=== PATIENT | male | born 1955 | race Caucasian/White ===

== ENCOUNTER 2020-05-27 16:44 | Inpatient (IN) | payer MEDICARE, OTHER ==
[~2020-05-27] VITALS: Ht 188 cm; Wt 84.8 kg
--- NOTE | 2020-05-27 17:29 | NUR ---
LAWRENCE FROM HOME TO ER BED 6. AAOX4. NOT IN RESP DISTRESS, BREATHING EVEN AND UNLABORED. BROUGHT IN FOR DIARRHEA X 7 DAYS AND FEELING SICK AND WEAK. PER PT, HE HAS BEEN HAVING MULTIPLE EPISODES OF [place]ATTERY DIARRHEA FOR THE PAST 7 DAYS. PT IS REPORTED TO BE AN ALCOHOLIC AND LAST DRINK WAS 7 DAYS AGO. NO NOTED TREMORS. XIANG DAVIS WAS AT THE BEDSIDE FOR EVAL. ORDERS RECEIVED, NOTED AND CARRIED OUT. IV LINE ALREADY ESTABLISHED ON LFA 20G BY EMS WORKFORCE MANAGEMENT MANAGER. BLOOD DRAWN BY COVER STRIPPER.
[2020-05-27] MEDS ORDERED: IV NS 0.9% 500 ML BAG IV ONE ×2 (17:30→18:30)
[2020-05-27] MEDS ORDERED: CHLORDIAZEPOXIDE HCL 25 MG CAPSULE PO ONE (17:30)
[2020-05-27] MEDS ORDERED: LORAZEPAM INJ 2 MG/ML VIAL IV ONE (17:30)
[2020-05-27] MEDS ORDERED: ONDANSETRON HCL/PF 4 MG/2 ML VIAL IVP ONE (17:30)
[2020-05-27] MEDS ORDERED: PANTOPRAZOLE 40 MG VIAL IV ONE (17:30)
[2020-05-27 17:31] LABS: BASOPHILS # (AUTO) 0.1 /CMM (0.0-0.2); BASOPHILS % (AUTO) 0.3 % (0.0-2.0); EOSINOPHILS % (AUTO) 0.1 % (0.0-6.0); HEMATOCRIT 36 % (39-51); HEMOGLOBIN 11.4 g/dL (13.5-17.5); LYMPHOCYTES # (AUTO) 0.3 /CMM (0.8-4.8); LYMPHOCYTES % (AUTO) 1.3 % (20.0-44.0); MEAN CORPUSCULAR HGB CONC 32 g/dl (31.0-36.0); MEAN CORPUSCULAR VOLUME 95 fL (80-96); MONOCYTES # (AUTO) 0.8 /CMM (0.1-1.30); MONOCYTES % (AUTO) 3.3 % (2.0-12.0); NEUTROPHILS # (AUTO) 22.6 /CMM (1.8-8.9); PLATELET COUNT (AUTO) 193 /CMM (150-450); RED BLOOD CELL COUNT(AUTO) 3.76 MIL/uL (4.5-6.0); WHITE BLOOD COUNT (AUTO) 23.8 K/uL (4.3-11.0)
[2020-05-27] MEDS ORDERED: PANTOPRAZOLE 40 MG VIAL ONE (17:40)
[2020-05-27] MEDS ORDERED: ONDANSETRON HCL/PF 4 MG/2 ML VIAL ONE (17:40)
[2020-05-27] MEDS ORDERED: CHLORDIAZEPOXIDE HCL 25 MG CAPSULE ONE (17:41)
[2020-05-27] MEDS ORDERED: LORAZEPAM INJ 2 MG/ML VIAL ONE (17:41)
[2020-05-27 17:54] LABS: ALBUMIN 1.9 g/dL (3.4-5.0); BILIRUBIN,DIRECT 0.5 mg/dL (0.0-0.2); BILIRUBIN,TOTAL 0.9 mg/dL (0.2-1.0); CALCIUM, SERUM 8.4 mg/dL (8.5-10.1); CREATININE 1.4 mg/dL (0.6-1.3)
[2020-05-27 18:09] LABS: POTASSIUM 2.6 mmol/L (3.5-5.1)
[2020-05-27 18:10] LABS: B-TYPE NATRIURETIC PEPTIDE 1516 PG/ML (0-125)
--- NOTE | 2020-05-27 18:10 | NUR ---
PT STILL UNABLE TO PROVIDE URINE AT THIS TIME. XIANG DAVIS WAS NOTIFIED, ORDER RECEIVED TO GIVE ANOTHER 500ML NS BOLUS X 1. COLLECT URINE WHEN PT CAN URINATE. ORDERS NOTED AND CARRIED OUT.
[2020-05-27 18:25] LABS: ALCOHOL, BLOOD 0 mg/dL (0-0)
[2020-05-27] MEDS ORDERED: AZITHROMYCIN 500 MG in IV D5W 250 ML IV ONE (18:30)
[2020-05-27] MEDS ORDERED: CEFTRIAXONE 1GM BAG (ER ONLY) 50 ML IV ONE ×2 (18:30→19:22)
[2020-05-27] MEDS ORDERED: IV NS 0.9% 1,000 ML BAG IV ONE (18:30)
[2020-05-27] MEDS ORDERED: ACETAMINOPHEN 325 MG TABLET PO ONE (18:30)
--- NOTE | 2020-05-27 18:57 | NUR ---
URINE COLLECTED VIA IN AND OUT CATH PER PA ORDERED. PROCEDURE DONE WITH STRICT STERILE TECHNIQUE. PT IS NOT COMPLAINING OF ANY PAIN.
[2020-05-27 19:03] LABS: APPEARANCE,URINE Clear (CLEAR); BILIRUBIN,URINE SMALL (NEGATIVE); BLOOD, URINE Large Ery/uL (NEGATIVE); COLOR,URINE Yellow (YELLOW); KETONES,URINE Negative (NEGATIVE); LEUKOCYTE ESTERASE ,URINE Negative (NEGATIVE); NITRITE, URINE Negative (NEGATIVE); PROTEIN,URINE 30 mg/dl (NEGATIVE); UGLUCOSE Negative (NEGATIVE)
[2020-05-27 19:34] LABS: BACTERIA,URINE Moderate /HPF (None Seen); SQUAMOUS EPITHELIAL CELL,UR Moderate /HPF (None Seen)
[2020-05-27] MEDS ORDERED: ACETAMINOPHEN ES 500 MG TABLET ONE (19:34)
[2020-05-27 19:35] LABS: RBC,URINE 21-50 /HPF (0-2)
[2020-05-27] MEDS ORDERED: POTASSIUM CL. PREMIX PERIPHER. 50 ML ONE ×4 (19:35→22:42)
[2020-05-27] MEDS: POTASSIUM CL. PREMIX PERIPHER. 50 ML IV SCH ×4 (19:45→22:52)
--- NOTE | 2020-05-27 20:20 | NUR ---
COVID SWAB DONE AND SENT TO LAB
[2020-05-27] MEDS ORDERED: HYDROCODONE/APAP 5/325MG TABLET PO PRN (22:00)
[2020-05-27] MEDS ORDERED: MAGNESIUM HYDROXIDE 30 ML UDC PO PRN (22:00)
[2020-05-27] MEDS ORDERED: MAG HYDROX/AL HYDROX/SIMETH 30 ML UDC PO PRN (22:00)
[2020-05-27] MEDS ORDERED: Z GUARD REMEDY 2 OZ OINT TP PRN (22:00)
[2020-05-27] MEDS ORDERED: LORAZEPAM 1 MG TABLET PO PRN (22:00)
[2020-05-27] MEDS ORDERED: ZOLPIDEM TARTRATE 5 MG TABLET PO PRN (22:00)
[2020-05-27] MEDS ORDERED: ONDANSETRON HCL/PF 4 MG/2 ML VIAL IVP PRN (22:00)
[2020-05-27] MEDS ORDERED: ACETAMINOPHEN 325 MG TABLET PO PRN (22:00)
--- NOTE | 2020-05-27 22:12 | NUR ---
BED ASSIGNMENT 203
--- NOTE | 2020-05-27 23:07 | NUR ---
REPORT GIVEN TO WEI LUNA FOR JOSEPH.
[2020-05-27 23:48] LABS: C-REACTIVE PROTEIN 21.7 mg/dL (0.0-0.9)
[2020-05-28] VITALS: BP 104/67
--- NOTE | 2020-05-28 00:05 | NUR ---
pt transported to unit on [facility] with emt and rn at bedside w/ acls protocol. nad noted during transport. pt ambulated with min assist and aide of a cane from gurney to bed.
[2020-05-28 01:03] VITALS: BP 104/67
[2020-05-28] MEDS: ASCORBIC ACID 500 MG TABLET PO SCH ×2 (01:22→08:45)
[2020-05-28] MEDS: ZINC SULFATE 220 MG CAPSULE PO SCH ×2 (01:22→08:45)
[2020-05-28] MEDS: CHOLECALCIFEROL 1,000 UNIT TABLET (VIT D3) PO SCH ×2 (01:22→08:45)
[2020-05-28] MEDS: IV NS 0.9% 1,000 ML IV PRN ×2 (01:23→20:25)
[2020-05-28 04:00] VITALS: BP 116/67
[2020-05-28 06:19] VITALS: BP 116/67
--- NOTE | 2020-05-28 07:40 | NUR ---
RN NOTES RECEIVED PT IN BED, AWAKE, A/O X3-4. PT TOLERATING RA, WITH NO ACUTE RESPIRATORY DISTRESS NOTED. PT DENIES ANY PAIN OR DISCOMFORT AT THIS TIME. ON TELEMONITORING ST 140S, DENIES OF ANY CHEST PAIN. PT DENIES ANY CONCERNS OR QUESTIONS AT THIS TIME WELL. IVF NS AT 75ML/HR TO LFA G20, INTACT AND FLUID INFUSING WELL. PT KEPT COMFORTABLE. PT'S BED IN LOWEST, LOCKED POSITION WITH SRX3. CALL LIGHT KEPT WITHIN REACH. WILL CONTINUE PLAN OF CARE.
[2020-05-28 07:58] LABS: BASOPHILS % (AUTO) 0.2 % (0.0-2.0); EOSINOPHILS % (AUTO) 0.5 % (0.0-6.0); HEMATOCRIT 37 % (39-51); HEMOGLOBIN 11.6 g/dL (13.5-17.5); LYMPHOCYTES # (AUTO) 0.7 /CMM (0.8-4.8); LYMPHOCYTES % (AUTO) 3.3 % (20.0-44.0); MEAN CORPUSCULAR HGB CONC 31 g/dl (31.0-36.0); MEAN CORPUSCULAR VOLUME 96 fL (80-96); MONOCYTES # (AUTO) 0.4 /CMM (0.1-1.30); NEUTROPHILS # (AUTO) 18.8 /CMM (1.8-8.9); PLATELET COUNT (AUTO) 179 /CMM (150-450); RED BLOOD CELL COUNT(AUTO) 3.88 MIL/uL (4.5-6.0)
[2020-05-28 08:26] LABS: CALCIUM, SERUM 7.8 mg/dL (8.5-10.1); CARBON DIOXIDE 17 mmol/L (21-32); CHLORIDE 105 mmol/L (98-107); CREATININE 1.2 mg/dL (0.6-1.3); GLUCOSE 99 mg/dL (74-106); MAGNESIUM 2.4 mg/dL (1.8-2.4); PHOSPHORUS 2.9 mg/dL (2.5-4.9); SODIUM SERUM 137 mmol/L (136-145); UREA NITROGEN, BLOOD 29 mg/dL (7-18)
[2020-05-28] MEDS: ENOXAPARIN SODIUM 40 MG/0.4 ML DISP.SYRIN SQ SCH (08:43)
--- NOTE | 2020-05-28 10:45 | NUR ---
RN NOTES PT SEEN AND EVALUATED BY DR. DAVIS/NEPHRO, ORDERED TO REPLACE POTASSIUM 40 PO. PLACED AND CARRIED OUT. PT AWARE.
[2020-05-28] MEDS ORDERED: POTASSIUM CHLORIDE 20 MEQ TAB.PRT.SR PO ONE (11:00)
--- NOTE | 2020-05-28 11:00 | NUR ---
RN NOTES SEEN AND EVALUATED BY HOSPITALIST/NN, ORDERED STOOL FOR CDIFF. PT AWARE.
--- NOTE | 2020-05-28 11:15 | NUR ---
RN NOTES STOOL SPECIMEN FOR C DIFF SENT TO LAB. RECEIVED BY ARTURO.
[2020-05-28 12:36] LABS: CHOLESTEROL 54 mg/dL (<200); CREATINE KINASE, TOTAL 10 U/L (39-308); FERRITIN 224 ng/mL (8-388); LDL 31 mg/dL (0-99); THYROID STIMULATING HORMONE 0.654 uIU/mL (0.358-3.74); TRIGLYCERIDES 62 mg/dL (30-150)
[2020-05-28 12:38] LABS: HDL CHOLESTEROL < 10 mg/dL (40-60)
--- NOTE | 2020-05-28 16:28 | NUR ---
RN NOTES SEEN AND EVALUATED BY ID ARTIFICIAL FLOWERS STARCHER, IV ANTIBIOTICS MODIFIED. PT R/O FOR CDIFF, CONTACT ISOLATION INITIATED.
--- NOTE | 2020-05-28 16:29 | NUR ---
RN NOTES RECEIVED CALL FROM LAB PT IS NEGATIVE FOR COVID, HOSPITALIST/NN AND NURSING SUP/KAM NOTIFIED WITH THE RESULT WELL.
[2020-05-28] MEDS: CEFTRIAXONE 2 G in IV D5W 100 ML IV SCH (17:04)
--- NOTE | 2020-05-28 17:20 | NUR ---
Received transfer report from [facility] Nurse, [place].
[2020-05-28] MEDS: METRONIDAZOLE 500MG/ NS 100ML 500 MG in PREMIX 1 EA IV SCH (17:41)
--- NOTE | 2020-05-28 19:22 | NUR ---
RN NOTES PT REMAINS IN BED, AWAKE, A/O X3-4. PT TOLERATING RA, WITH NO ACUTE RESPIRATORY DISTRESS NOTED. PT DENIES ANY PAIN OR DISCOMFORT AT THIS TIME. ON TELEMONITORING ST 140S, DENIES OF ANY CHEST PAIN. IVF NS AT 75ML/HR TO LFA G20, INTACT AND FLUID INFUSING WELL. PT KEPT COMFORTABLE. ALL NEEDS AND CARE ATTENDED. PT'S BED IN LOWEST, LOCKED POSITION WITH SRX3. CALL LIGHT KEPT WITHIN REACH. ENDORSED TO INCOMING NIGHT NURSE FOR JOSEPH.
[2020-05-28 20:00] VITALS: BP 103/64
--- NOTE | 2020-05-28 20:00 | NUR ---
CONCRETE PRODUCTS DISPATCHERPLUG ASSEMBLER NOTE: Patient in bed awake, alert, and oriented x4. Patient able to make needs known. Patient breathing well on room air and in no apparent respiratory distress, no SOB. Patient denies pain or discomfort. IV access noted on left forearm 20 gauge, dressing intact, dry, flushes well patent, no redness or infiltration. IV access also noted on right forearm 20 gauge, patent, no redness or infiltration. Safety precaution is in place, bed is in the lowest level, bed is locked, alarm is on, side rails x2 are up and call light is within reach. Will continue to monitor.
[2020-05-29] VITALS: BP 115/73
[2020-05-29] MEDS: METRONIDAZOLE 500MG/ NS 100ML 500 MG in PREMIX 1 EA IV SCH ×3 (01:17→16:30)
[2020-05-29 04:00] VITALS: BP 153/81
--- NOTE | 2020-05-29 06:34 | NUR ---
SLITTER PROCESSED FILM CLOSING NOTE: Patient in bed sleeping comfortably. Patient is breathing well on room air. Breathing equal and unlabored, no SOB. Safety precaution is in place, bed is in the lowest level, side rails are up, brakes are on, alarm is on, and call light is within reach. Will endorse to next shift.
--- NOTE | 2020-05-29 07:30 | NUR ---
MANAGER EQUITY OPENING NOTES RECEIVED PT ON BED, A/OX4, ABLE TO MAKE NEEDS KNOWN. RESPIRATION EVEN AND NON LABORED WITH NO ACUTE RESPIRATORY DISTRESS, TOLERATED ROOM AIR. ABD SOFT AND NON DISTENDED WITH ACTIVE BOWEL SOUNDS, URINAL ON BEDSIDE. DENIES PAIN AND DISCOMFORT. SKIN WARM TO TOUCH AN DRY, BLE OFFLOAD, INDEPENDENT IN BED MOBILITY. IV SITE AT RIGHT FA AND LEFT FA, NO S/S OF INFILTRATION, PATENT IN FLUSHING RUNNING NS AT 75 ML/HR. CALL LIGHT WITHIN REACH, BED IN LOW LOCKED POSITION, SRX2 UP FOR SAFETY, BED ALARM ON. BM 05/28 5 LOST BM PER REPORT, PENDING C-DIFF TEST. TELE MONITOR SHOWS SINUS RHYTHM TO SNUS TACHYCARDIA MAX 110. WILL CONTINUE TO MONITOR CARE
[2020-05-29] MEDS: ASCORBIC ACID 500 MG TABLET PO SCH (08:23)
[2020-05-29] MEDS: CHOLECALCIFEROL 1,000 UNIT TABLET (VIT D3) PO SCH (08:23)
[2020-05-29] MEDS: ZINC SULFATE 220 MG CAPSULE PO SCH (08:23)
[2020-05-29] MEDS: ENOXAPARIN SODIUM 40 MG/0.4 ML DISP.SYRIN SQ SCH (08:25)
[2020-05-29 10:07] VITALS: BP 140/69
[2020-05-29] MEDS: IV NS 0.9% 1,000 ML IV PRN (11:16)
[2020-05-29 12:20] VITALS: BP 148/68
--- NOTE | 2020-05-29 12:55 | NUR ---
PORTFOLIO STRATEGIST NOTES PT SEEN AND EVALUATED BY DR. RIVERA, REPORT PROVIDED. SURGICAL CONSULT INITIATED D/T DIVERTICULITIS. D/C NS CHANGED TO D5NS AT 75 ML/HR. DC DIET, NPO NOW. ORDER READ BACK NOTED AND CARRIED OUT. PT NOTIFIED
[2020-05-29] MEDS: IV D5/ 0.9% NACL 1,000 ML IV PRN (13:09)
[2020-05-29 14:37] LABS: BASOPHILS % (AUTO) 0.1 % (0.0-2.0); EOSINOPHILS % (AUTO) 0.2 % (0.0-6.0); HEMATOCRIT 31 % (39-51); HEMOGLOBIN 9.9 g/dL (13.5-17.5); LYMPHOCYTES # (AUTO) 0.8 /CMM (0.8-4.8); MEAN CORPUSCULAR HGB CONC 32 g/dl (31.0-36.0); MEAN CORPUSCULAR VOLUME 94 fL (80-96); MONOCYTES # (AUTO) 0.7 /CMM (0.1-1.30); MONOCYTES % (AUTO) 3.5 % (2.0-12.0); NEUTROPHILS % (AUTO) 92.2 % (43.0-81.0); PLATELET COUNT (AUTO) 169 /CMM (150-450); RED BLOOD CELL COUNT(AUTO) 3.28 MIL/uL (4.5-6.0); WHITE BLOOD COUNT (AUTO) 20.6 K/uL (4.3-11.0)
[2020-05-29 14:44] LABS: CALCIUM, SERUM 7.7 mg/dL (8.5-10.1); CREATININE 1.1 mg/dL (0.6-1.3); POTASSIUM 2.9 mmol/L (3.5-5.1)
--- NOTE | 2020-05-29 15:01 | NUR ---
SENIOR SYSTEMS ENGINEER NOTES LAB REPORTED TO DR. RIVERA, NEW ORDER OF KCL 40 MEQ/4H X2. TOTAL OF 8 BAGS. ORDER READ BACK NOTED AND CARRIED OUT. PT NOTIFIED
[2020-05-29] MEDS: POTASSIUM CL. PREMIX PERIPHER. 50 ML IV SCH ×6 (15:22→21:16)
[2020-05-29] MEDS ORDERED: MORPHINE SULFATE INJ 2 MG/ML DISP.SYRIN IV PRN (15:30)
[2020-05-29] MEDS ORDERED: POTASSIUM CHLORIDE 10 MEQ/50 ML PREMIXED IVPB FOR PERIPHERAL LINE IV ONE (15:30)
[2020-05-29] MEDS ORDERED: LORAZEPAM INJ 2 MG/ML VIAL IV PRN (15:30)
[2020-05-29] MEDS: CEFTRIAXONE 2 G in IV D5W 100 ML IV SCH (15:35)
[2020-05-29 17:04] VITALS: BP 145/86
--- NOTE | 2020-05-29 18:42 | NUR ---
CUSTOMS CONSULTANT CLOSING NOTES PT AAOX4, ABLE TO MAKE NEEDS KNOWN. ON ON GOING KCL REPLACEMENT DUE TO LOW K OF 2.5, 4 BAGS MORE. ASSESSED NO PRESENCE OF ACUTE RESPIRATORY DISTRESS, ON ROOM AIR. ABD SOFT AND NON DISTENDED, SLIGHTLY DISCOMFORT WHEN PALPATED. BM X1 LOOSE, NEGATIVE C-DIFF. PT ON NPO FOR PENDING CONSULTS D/T DIVERTICULITIS. NO NEW SKIN BREAKDOWN. IV SITE AT RIGHT AND LEFT FA #20 PATENT IN FLUSHING RUNNING D5NS AT 75 ML/HR. ALL CONCERNS ATTENDED. CALL LIGHT WITHIN REACH, BED IN LOW LOCKED POSITION, SRX2 UP FOR SAFETY, BED ALARM ON. TELE MONITOR SHOWS SINUS RHYTHM. ENDORSED CARE TO NEXT SHIFT.
--- NOTE | 2020-05-29 19:30 | NUR ---
RN OPENING NOTES PT RECEIVED RESTING IN BED. A/O X4. TELE MONITOR DISPLAYS NSR HR 85. NO SIGNS OF RESPIRATORY DISTRESS OR SOB. BREATHING IS EVEN AND UNLABORED. IV SITES RIGHT FA #20 AND LEFT FA #20 PATENT FLUSHED. RIGHT FA INFUSING KCL FOR LOW POTASSIUM OF 2.5 LEFT FA INFUSING D5NS @ 75ML/HR. PATIENT VERBALIZES DISCOMFORT ON RIGHT FA DUE TO INFUSION OF KCL. GIVEN AN ICE PACK, PT VERBALIZES TOLERABLE AT THIS TIME. BED IS LOCKED IN LOWEST POSITION CALL LIGHT WITHIN REACH WILL CONTINUE TO MONITOR.
[2020-05-29 20:00] VITALS: BP 135/75
--- NOTE | 2020-05-29 22:15 | NUR ---
KCL NOT STOCKED AT THIS TIME FOR BAG 03/09. CHARGE NOTIFIED
[2020-05-30] VITALS: BP 115/62
[2020-05-30] MEDS ORDERED: POTASSIUM CL. PREMIX PERIPHER. 100 ML ONE (00:02)
[2020-05-30] MEDS: POTASSIUM CL. PREMIX PERIPHER. 50 ML IV SCH ×2 (00:10→01:17)
[2020-05-30] MEDS: METRONIDAZOLE 500MG/ NS 100ML 500 MG in PREMIX 1 EA IV SCH ×3 (01:09→17:00)
--- NOTE | 2020-05-30 01:20 | NUR ---
PT REFUSES LAST BAG OF KCL. EXPLAINED IMPORTANCE, RISKS AND BENEFITS X3. PT STILL REFUSES DUE TO PAIN AT SITE. NO S/S OF INFILTRATION NOTED. PT ONLY WISHES TO DISCONTINUE KCL IN REGARDS TO PAIN AT THIS TIME.
[2020-05-30 04:00] VITALS: BP 144/87
[2020-05-30] MEDS: IV D5/ 0.9% NACL 1,000 ML IV PRN (06:32)
[2020-05-30 07:17] LABS: BASOPHILS % (AUTO) 0.1 % (0.0-2.0); EOSINOPHILS % (AUTO) 0.5 % (0.0-6.0); HEMATOCRIT 30 % (39-51); HEMOGLOBIN 9.5 g/dL (13.5-17.5); LYMPHOCYTES # (AUTO) 0.7 /CMM (0.8-4.8); MEAN CORPUSCULAR HGB CONC 32 g/dl (31.0-36.0); MEAN CORPUSCULAR VOLUME 96 fL (80-96); MONOCYTES # (AUTO) 0.7 /CMM (0.1-1.30); MONOCYTES % (AUTO) 4.2 % (2.0-12.0); NEUTROPHILS # (AUTO) 15.8 /CMM (1.8-8.9); NEUTROPHILS % (AUTO) 91.2 % (43.0-81.0); PLATELET COUNT (AUTO) 162 /CMM (150-450); RED BLOOD CELL COUNT(AUTO) 3.09 MIL/uL (4.5-6.0); WHITE BLOOD COUNT (AUTO) 17.3 K/uL (4.3-11.0)
--- NOTE | 2020-05-30 07:35 | NUR ---
BELT BUILDER OPENING NOTES RECEIVED PT ON BED, A/OX4, ON ROOM AIR, NO ACUTE RESPIRATORY DISTRESS NOTED. URINAL ON BEDSIDE. NO PAIN AND DISCOMFORT. INDEPENDENT IN BED MOBILITY. IV SITE AT RIGHT FA AND LEFT FA, INTACT AND PATENT IN FLUSHING RUNNING NS AT 75 ML/HR. SAFETY MEASURES OBSERVED. CALL LIGHT WITHIN REACH, BED LOCKED AND IN LOW POSITION, SRX2. WILL CONTINUE TO MONITOR CARE
[2020-05-30 07:50] LABS: CALCIUM, SERUM 7.6 mg/dL (8.5-10.1); MAGNESIUM 1.6 mg/dL (1.8-2.4); PHOSPHORUS 2.9 mg/dL (2.5-4.9); POTASSIUM 3.4 mmol/L (3.5-5.1)
[2020-05-30 08:00] VITALS: BP 134/75
[2020-05-30] MEDS: ASCORBIC ACID 500 MG TABLET PO SCH (09:00)
[2020-05-30] MEDS: CHOLECALCIFEROL 1,000 UNIT TABLET (VIT D3) PO SCH (09:00)
[2020-05-30] MEDS: ENOXAPARIN SODIUM 40 MG/0.4 ML DISP.SYRIN SQ SCH (09:00)
[2020-05-30] MEDS: ZINC SULFATE 220 MG CAPSULE PO SCH (09:00)
--- NOTE | 2020-05-30 09:16 | NUR ---
RN CLOSING NOTES PT IS ASLEEP. TELE MONITORING NSR HR 78. ON ROOM AIR. TOLERATING WELL. BREATHING IS EVEN AND UNLABORED NO SIGNS OF SOB OR RESP DISTRESS. PT IS STILL NPO PER SURG CONSULT ORDER. IV SITE STILL INFUSING MD ORDER OR IVF D5 NS @75ML/HR. NO S/S OF INFILTRATION NOTED AT THIS TIME. BED IS LOCKED IN LOWEST POSITION. BED ALARM ON. CALL LIGHT WITHIN REACH. ENDORSED TO ONCOMING NURSE FOR CONTINUATION OF CARE.
[2020-05-30] MEDS: Magnesium 1GM/D5W 100ML PREMIX 100 ML IV SCH (09:50)
[2020-05-30] MEDS ORDERED: POTASSIUM CL. PREMIX PERIPHER. 50 ML IV SCH (10:38)
[2020-05-30 12:00] VITALS: BP 139/84
[2020-05-30 16:00] VITALS: BP 149/82
[2020-05-30] MEDS: CEFTRIAXONE 2 G in IV D5W 100 ML IV SCH (16:30)
--- NOTE | 2020-05-30 19:35 | NUR ---
RN CLOSING NOTES PT RESTING IN BED. TELE MONITORING SR HR @ 70S. ON ROOM AIR. NO SOB OR RESP DISTRESS. PT IS NOW ON CLEAR LIQUIDS PER MD. IVF D5 NS @75ML/HR. INFUSING WELL. NO PAIN NOTED AT THIS TIME. SAFETY MEASURES OBSERVED. BED LOCKED AND AT LOWEST POSITION. CALL LIGHT WITHIN REACH. ENDORSED TO NIGHT NURSE FOR JOSEPH.
[2020-05-30 20:00] VITALS: BP_SYST 118; BP_SYST 137; BP_DIAS 57; BP_DIAS 72
--- NOTE | 2020-05-30 20:00 | NUR ---
RN OPENING NOTES RECEIVED PT IN BED, A/OX3, ON ROOM AIR SATING 98%, UNLABORED BREATHING PT ON TELE MONITOR SHOWING SR AT 70s. SAFETY MEASURES IN PLACE , CALL LIGHT WITHIN REACH, BED LOCKED AND AT LOWEST POSITION, SIDE RAILS UP X2.
[2020-05-31] VITALS: BP 137/73
[2020-05-31] MEDS: IV D5/ 0.9% NACL 1,000 ML IV PRN (00:28)
[2020-05-31] MEDS: METRONIDAZOLE 500MG/ NS 100ML 500 MG in PREMIX 1 EA IV SCH ×3 (01:10→17:37)
[2020-05-31 04:00] VITALS: BP 134/72
[2020-05-31 06:45] LABS: HIV SCRN 4G wRFX Non Reactive (Non Reactive)
[2020-05-31 06:52] LABS: BASOPHILS % (AUTO) 0.2 % (0.0-2.0); EOSINOPHILS % (AUTO) 1.2 % (0.0-6.0); HEMATOCRIT 25 % (39-51); HEMOGLOBIN 8.2 g/dL (13.5-17.5); LYMPHOCYTES # (AUTO) 0.7 /CMM (0.8-4.8); LYMPHOCYTES % (AUTO) 4.9 % (20.0-44.0); MEAN CORPUSCULAR HGB CONC 33 g/dl (31.0-36.0); MEAN CORPUSCULAR VOLUME 93 fL (80-96); MONOCYTES # (AUTO) 0.9 /CMM (0.1-1.30); MONOCYTES % (AUTO) 6.1 % (2.0-12.0); NEUTROPHILS # (AUTO) 12.4 /CMM (1.8-8.9); NEUTROPHILS % (AUTO) 87.6 % (43.0-81.0); PLATELET COUNT (AUTO) 174 /CMM (150-450); RED BLOOD CELL COUNT(AUTO) 2.69 MIL/uL (4.5-6.0); WHITE BLOOD COUNT (AUTO) 14.1 K/uL (4.3-11.0)
--- NOTE | 2020-05-31 07:17 | NUR ---
RN CLOSING NOTE PT REMAINED STABLE DURING MY SHIFT, REPORT GIVEN TO INCOMING SHIFT FOR JOSEPH.
[2020-05-31 08:00] VITALS: BP 148/82
[2020-05-31] MEDS: ZINC SULFATE 220 MG CAPSULE PO SCH (08:07)
[2020-05-31] MEDS: ASCORBIC ACID 500 MG TABLET PO SCH (08:07)
[2020-05-31] MEDS: CHOLECALCIFEROL 1,000 UNIT TABLET (VIT D3) PO SCH (08:07)
[2020-05-31] MEDS: ENOXAPARIN SODIUM 40 MG/0.4 ML DISP.SYRIN SQ SCH (08:09)
[2020-05-31 08:33] LABS: ALBUMIN 1.5 g/dL (3.4-5.0); BILIRUBIN,TOTAL 0.7 mg/dL (0.2-1.0); CALCIUM, SERUM 6.8 mg/dL (8.5-10.1); CREATININE 0.8 mg/dL (0.6-1.3); MAGNESIUM 1.5 mg/dL (1.8-2.4)
[2020-05-31 09:05] LABS: POTASSIUM 2.7 mmol/L (3.5-5.1)
[2020-05-31] MEDS ORDERED: POTASSIUM CHLORIDE 20 MEQ TAB.PRT.SR PO ONE (10:00)
[2020-05-31] MEDS ORDERED: Potassium Chloride 10 MEQ in IV D5W 50 ML IV SCH (10:00)
[2020-05-31] MEDS ORDERED: POTASSIUM CHLORIDE 10 MEQ/50 ML PREMIXED IVPB FOR PERIPHERAL LINE IV ONE (10:00)
[2020-05-31] MEDS: POTASSIUM CL. PREMIX PERIPHER. 50 ML IV SCH ×4 (10:37→13:00)
[2020-05-31] MEDS: Magnesium 1GM/D5W 100ML PREMIX 100 ML IV SCH ×3 (10:55→11:58)
[2020-05-31 12:00] VITALS: BP 148/82
--- NOTE | 2020-05-31 14:14 | NUR ---
This SW followed up with Head Grower WEI Watson regarding this patient. Per Shirley, patient has been accepted to a [facility] facility.
[2020-05-31 15:18] LABS: URINE TOTAL PROTEIN 72.2 mg/dL (0-11.9)
[2020-05-31 16:00] VITALS: BP 148/82
[2020-05-31] MEDS: CEFTRIAXONE 2 G in IV D5W 100 ML IV SCH (16:45)
--- NOTE | 2020-05-31 18:39 | NUR ---
rn notes patient remains on room air, no sob noted, a/o x4 and is tolerating clear liquids. L FA @ 50 ml d5 NS remains. potassium replaced with 80 meq, half IV half oral. Claudia johnson MD aware. Bed at the lowest setting, call light within reach, side rails up x2.
[2020-05-31 20:00] VITALS: BP 141/80
[2020-06-01] MEDS: METRONIDAZOLE 500MG/ NS 100ML 500 MG in PREMIX 1 EA IV SCH ×3 (01:24→19:51)
[2020-06-01] MEDS: IV D5/ 0.9% NACL 1,000 ML IV PRN (01:28)
[2020-06-01 04:00] VITALS: BP 116/72
[2020-06-01 06:50] LABS: BASOPHILS % (AUTO) 0.3 % (0.0-2.0); EOSINOPHILS % (AUTO) 1.3 % (0.0-6.0); HEMATOCRIT 26 % (39-51); HEMOGLOBIN 8.6 g/dL (13.5-17.5); LYMPHOCYTES # (AUTO) 0.8 /CMM (0.8-4.8); LYMPHOCYTES % (AUTO) 6.4 % (20.0-44.0); MEAN CORPUSCULAR HGB CONC 33 g/dl (31.0-36.0); MEAN CORPUSCULAR VOLUME 93 fL (80-96); MONOCYTES # (AUTO) 0.9 /CMM (0.1-1.30); NEUTROPHILS # (AUTO) 10.9 /CMM (1.8-8.9); PLATELET COUNT (AUTO) 200 /CMM (150-450); WHITE BLOOD COUNT (AUTO) 12.9 K/uL (4.3-11.0)
--- NOTE | 2020-06-01 07:21 | NUR ---
MS-1/RESEARCH PROGRAM COORDINATOR REPORT TO SOON RN FOR CONT OF CARE.
[2020-06-01 07:34] LABS: ALBUMIN 1.6 g/dL (3.4-5.0); BILIRUBIN,TOTAL 0.4 mg/dL (0.2-1.0); CALCIUM, SERUM 7.4 mg/dL (8.5-10.1); CREATININE 0.7 mg/dL (0.6-1.3); MAGNESIUM 1.7 mg/dL (1.8-2.4); POTASSIUM 3.2 mmol/L (3.5-5.1)
--- NOTE | 2020-06-01 08:00 | NUR ---
MS RN OPENING NOTES Received Patient resting in bed. A/O x 4. VS stable with no acute distress. Breathing even and unlabored on room air with no respiratory distress. Denies pain. No signs and symptoms of pain. 20g PIV on LFA intact, patent and flushing well. 20g PIV on RFA intact, patent and flushing well with D5NS infusing at 50ml/hr. Safety precautions in place. Bed locked and set to lowest position with side rails x 2 up. All needs rendered at this time. Call light within reach. Will continue to monitor.
[2020-06-01] MEDS: ZINC SULFATE 220 MG CAPSULE PO SCH (08:44)
[2020-06-01] MEDS: ASCORBIC ACID 500 MG TABLET PO SCH (08:44)
[2020-06-01] MEDS: CHOLECALCIFEROL 1,000 UNIT TABLET (VIT D3) PO SCH (08:44)
[2020-06-01] MEDS: ENOXAPARIN SODIUM 40 MG/0.4 ML DISP.SYRIN SQ SCH (08:45)
[2020-06-01] MEDS: POTASSIUM CL. PREMIX PERIPHER. 50 ML IV SCH ×6 (08:59→19:51)
[2020-06-01 09:23] LABS: FERRITIN 266 ng/mL (8-388)
[2020-06-01 10:20] LABS: IRON, SERUM 37 ug/dl (50-175); TOTAL IRON BINDING CAPACITY 111 ug/dl (250-450)
[2020-06-01] MEDS: Magnesium 1GM/D5W 100ML PREMIX 100 ML IV SCH ×2 (12:21→16:17)
[2020-06-01] MEDS ORDERED: IV NS 0.9% 250 ML IV ONE (15:16)
[2020-06-01] MEDS ORDERED: IOHEXOL-300 100 ML VIAL IV ONE (15:16)
[2020-06-01] MEDS ORDERED: DIATR MEGLU/DIATRIZOATE SODIUM 120 ML BOTTLE (GASTROGRAPHIN) ONE ×2 (15:47→15:48)
[2020-06-01] MEDS ORDERED: DIATR MEGLU/DIATRIZOATE SODIUM 30 ML BOTTLE (GASTROGRAPHIN) ONE ×2 (17:16→17:29)
--- NOTE | 2020-06-01 19:10 | NUR ---
rn ms opening notes received patient in bed awake alert and oriented x4, respirations even and unlabored with equal rise and fall of chest, denies any pain or discomfort at this time, respirations even and unlabored with equal rise and fall of chest, iv site to right wrist #20G intact and patent no redness no infiltration present, ivf running as ordered, safety precautions rendered, bed alarm in place, all needs attended at this time , will continue to monitor and attend to needs. remains comfortable at this time.
--- NOTE | 2020-06-01 19:52 | NUR ---
MS RN CLOSING NOTES Patient resting in bed. A/O x 4. VS stable with no acute distress. Breathing even and unlabored on room air with no respiratory distress. Denies pain. No signs and symptoms of pain. 20g PIV on right wrist intact, patent and flushing well with D5NS infusing at 50ml/hr. Safety precautions in place. Bed locked and set to lowest position with side rails x 2 up. All needs rendered at this time. Call light within reach. Will endorse plan of care to oncoming shift.
[2020-06-01 20:00] VITALS: BP 142/77
[2020-06-01] MEDS: CEFTRIAXONE 2 G in IV D5W 100 ML IV SCH (20:10)
[2020-06-02] MEDS: METRONIDAZOLE 500MG/ NS 100ML 500 MG in PREMIX 1 EA IV SCH ×2 (00:06→08:53)
[2020-06-02 04:00] VITALS: BP 136/77
--- NOTE | 2020-06-02 06:17 | NUR ---
rn ms closing notes patient in bed sleeping easily arousable alert and oriented x4, respirations even and unlabored with equal rise and fall of chest, denies any pain or discomfort at this time, respirations even and unlabored with equal rise and fall of chest, iv site to right wrist #20G intact and patent no redness no infiltration present, ivf running as ordered, safety precautions rendered, bed alarm in place, all needs attended at this time , will continue to monitor and attend to needs. remains comfortable at this time and will endorse to next shift, no bm this shift.
--- NOTE | 2020-06-02 07:15 | NUR ---
RN OPENING NOTES RECEIVED PT IN BED, A/O X 4. ON ROOM AIR SATURATING @ 99%. NO SOB OR ACUTE RESPIRATORY DISTRESS NOTED. R WRIST #20 INTACT, PATENT AND FLUSHED. D5NS @ 50ML/HR. NO PAIN REPORTED AT THIS TIME. SAFETY PRECAUTIONS OBSERVED. CALL LIGHT WITHIN REACH. BED LOCKED AND IN LOWEST POSITION. WILL CONTINUE TO MONITOR
[2020-06-02 07:18] LABS: CALCIUM, SERUM 7.8 mg/dL (8.5-10.1); CREATININE 0.8 mg/dL (0.6-1.3); MAGNESIUM 1.8 mg/dL (1.8-2.4); POTASSIUM 3.3 mmol/L (3.5-5.1)
[2020-06-02 08:00] VITALS: BP 153/85
[2020-06-02] MEDS: ZINC SULFATE 220 MG CAPSULE PO SCH (08:50)
[2020-06-02] MEDS: ASCORBIC ACID 500 MG TABLET PO SCH (08:51)
[2020-06-02] MEDS: CHOLECALCIFEROL 1,000 UNIT TABLET (VIT D3) PO SCH (08:51)
[2020-06-02] MEDS: ENOXAPARIN SODIUM 40 MG/0.4 ML DISP.SYRIN SQ SCH (08:53)
[2020-06-02] MEDS: POTASSIUM CHLORIDE 20 MEQ TAB.PRT.SR PO SCH ×3 (10:05→12:52)
--- NOTE | 2020-06-02 18:30 | NUR ---
RN CLOSING NOTES DISCHARGED PT VIA GURNEY. A/O X 3-4. ON ROOM AIR SATURATING @ 99%. NO SOB OR ACUTE RESPIRATORY DISTRESS NOTED. SKIN IS INTACT. NO PAIN REPORTED AT THIS TIME. R WRIST #20 INTACT, PATENT AND FLUSHED. ENDORSED TO [facility], RECEIVED BY DIONICIO CARVAJAL. DIONICIO CARVAJAL REQUESTED NOT TO TAKE OUT IV LINE. FAMILY IS AWARE OF TRANSFER. CALLED BY CHARGE NURSE SOON. VS STABLE.
== END 2020-06-02 18:15 | DRG 871 ==
LOC: ER 16:50 → EDBD 20:59 → ICU 20:59 → SAOV 21:21 → TELE-TD 22:13 → TELE2 05-28 00:34 → TELE1 05-28 19:26 → MEDSG1 05-31 08:59
PROVIDERS: ATTEND Internal Medicine
DX: A41.9 Sepsis, unspecified organism (principal); N17.0 Acute kidney failure with tubular necrosis; J18.9 Pneumonia, unspecified organism; E87.2 Acidosis; I13.0 Hypertensive heart and chronic kidney disease with heart failure and stage 1 through stage 4 chronic kidney disease, or unspecified chronic kidney disease; J44.0 Chronic obstructive pulmonary disease with (acute) lower respiratory infection; E46 Unspecified protein-calorie malnutrition; N32.1 Vesicointestinal fistula; K57.20 Diverticulitis of large intestine with perforation and abscess without bleeding; E87.6 Hypokalemia; D64.9 Anemia, unspecified; E83.42 Hypomagnesemia; I25.2 Old myocardial infarction; I25.10 Atherosclerotic heart disease of native coronary artery without angina pectoris; N18.9 Chronic kidney disease, unspecified; M89.9 Disorder of bone, unspecified; K76.0 Fatty (change of) liver, not elsewhere classified; Z59.0 Homelessness; N20.0 Calculus of kidney; F10.10 Alcohol abuse, uncomplicated; Y90.9 Presence of alcohol in blood, level not specified; K44.9 Diaphragmatic hernia without obstruction or gangrene; E88.09 Other disorders of plasma-protein metabolism, not elsewhere classified; I95.9 Hypotension, unspecified; E83.9 Disorder of mineral metabolism, unspecified; Z68.24 Body mass index [BMI] 24.0-24.9, adult; E86.9 Volume depletion, unspecified; I70.90 Unspecified atherosclerosis
CPT/HCPCS: 36415; 70450-TC; 71045-TC; 76705-TC; 80048-TC; 80053-TC; 80061-TC; 80076-TC; 81000-TC; 82550-TC; 82728-TC; 82962-TC; 83540-TC; 83605-TC; 83615-TC; 83690-TC; 83735-TC; 83880; 83935-TC; 84100-TC; 84155-TC; 84443-TC; 84484-TC; 85025-TC; 85378-TC; 85652-TC; 85730-TC; 86140-TC; 86803; 87040-TC; 87081-TC; 87086-TC; 93307-TC; 97116-TC; 97530-TC; A4216; C9113; G0378; J0456; J0696; J1650; J2060; J2405; J3475; J3480; J3490; J7030; J7040; J7042; J7050; J7060; Q9963; Q9967; U0003-CS